=== PATIENT | female | born 1965 ===

== ENCOUNTER 2018-07-02 11:36 | Emergency (ER) | payer OTHER ==
[~2018-07-02] VITALS: Ht 154.9 cm; Wt 57.6 kg
[2018-07-02] MEDS ORDERED: PRINIVIL20 MG PO (11:47)
== END 2018-07-02 16:44 | disposition home or self-care (01) ==
LOC: ER 11:36
DX: S93.401A Sprain of unspecified ligament of right ankle, initial encounter (principal); X50.9XXA Other and unspecified overexertion or strenuous movements or postures, initial encounter; Y93.89 Activity, other specified; Y92.218 Other school as the place of occurrence of the external cause; Y99.8 Other external cause status